=== PATIENT | female | born 1965 | race Caucasian/White ===

== ENCOUNTER 2022-07-12 11:15 | Inpatient (IN) | payer MEDICARE ==
[2022-07-12] MEDS ORDERED: Dextrose 50% Abboject 50 ML SYRINGE SLOW IVP PRN (13:55)
[2022-07-12] MEDS: Gabapentin 300 MG CAP PO SCH ×2 (15:10→20:55)
[2022-07-12] MEDS: HYDROcodone/Acetaminophen 5/325 mg Tablet PO PRN ×2 (16:04→20:54)
[2022-07-12] MEDS: Glimepiride 2 MG TAB PO SCH (17:24)
[2022-07-12] MEDS ORDERED: Insulin Regular 300 UNITS/3 ML VIAL ONE (18:04)
[2022-07-12] MEDS: HumaLOG 300 UNITS/3 ML VIAL SC PRN (18:08)
[2022-07-12] MEDS: Senokot S 8.6-50 MG TAB PO SCH (20:52)
[2022-07-12] MEDS: Metoprolol Tartrate 25 MG TAB PO SCH (20:52)
[2022-07-12] MEDS: Polyethylene Glycol 3350 17 GM Packet PO SCH (20:52)
[2022-07-12] MEDS: QUEtiapine 100 MG TAB PO SCH (20:52)
[2022-07-12] MEDS: Arformoterol 15 MCG/2 ML NEB NEB SCH (20:52)
[2022-07-12] MEDS: traZODone HCl 50 MG TAB PO SCH (20:52)
[2022-07-12] MEDS: Lantus 1000 UNITS/10 ML VIAL SC SCH (21:31)
[2022-07-12] MEDS: Cyclobenzaprine 10 MG TAB PO PRN (22:56)
[2022-07-13] MEDS: HYDROcodone/Acetaminophen 5/325 mg Tablet PO PRN ×4 (04:38→21:02)
[2022-07-13] MEDS: Arformoterol 15 MCG/2 ML NEB NEB SCH ×2 (08:38→21:06)
[2022-07-13] MEDS: Glimepiride 2 MG TAB PO SCH ×2 (08:38→16:51)
[2022-07-13] MEDS: Aspirin Chewable 81 MG TAB PO SCH (08:38)
[2022-07-13] MEDS: Atorvastatin Calcium 40 MG TAB PO SCH (08:38)
[2022-07-13] MEDS: Citalopram 20 MG TAB PO SCH (08:38)
[2022-07-13] MEDS: Lantus 1000 UNITS/10 ML VIAL SC SCH ×2 (08:39→21:15)
[2022-07-13] MEDS: Furosemide 40 MG TAB PO SCH (08:39)
[2022-07-13] MEDS: Gabapentin 300 MG CAP PO SCH ×3 (08:39→21:01)
[2022-07-13] MEDS: Metoprolol Tartrate 25 MG TAB PO SCH ×2 (08:40→21:01)
[2022-07-13] MEDS: Senokot S 8.6-50 MG TAB PO SCH ×2 (08:40→21:01)
[2022-07-13] MEDS ORDERED: Milk Of Magnesia 30 ML UDCUP PO PRN (09:51)
[2022-07-13] MEDS ORDERED: Bisacodyl 10 MG SUPP PR PRN (09:51)
[2022-07-13] MEDS: HumaLOG 300 UNITS/3 ML VIAL SC PRN (16:50)
[2022-07-13] MEDS: traZODone HCl 50 MG TAB PO SCH (21:01)
[2022-07-13] MEDS: QUEtiapine 100 MG TAB PO SCH (21:01)
[2022-07-13] MEDS: Polyethylene Glycol 3350 17 GM Packet PO SCH (21:05)
[2022-07-13] MEDS: Cyclobenzaprine 10 MG TAB PO PRN (22:28)
[2022-07-14 05:31] LABS: Hemoglobin 9.1 g/dL (12.0-16.0); Platelet Count 291 10x3/uL (130-400)
[2022-07-14] MEDS: Lantus 1000 UNITS/10 ML VIAL SC SCH ×2 (08:01→20:53)
[2022-07-14] MEDS: Glimepiride 2 MG TAB PO SCH ×2 (08:03→17:00)
[2022-07-14] MEDS: Atorvastatin Calcium 40 MG TAB PO SCH (08:03)
[2022-07-14] MEDS: Furosemide 40 MG TAB PO SCH (08:03)
[2022-07-14] MEDS: Senokot S 8.6-50 MG TAB PO SCH ×2 (08:03→20:56)
[2022-07-14] MEDS: Gabapentin 300 MG CAP PO SCH ×3 (08:03→20:53)
[2022-07-14] MEDS: Citalopram 20 MG TAB PO SCH (08:03)
[2022-07-14] MEDS: HYDROcodone/Acetaminophen 5/325 mg Tablet PO PRN ×3 (08:04→20:11)
[2022-07-14] MEDS: Arformoterol 15 MCG/2 ML NEB NEB SCH ×2 (08:10→20:50)
[2022-07-14] MEDS: Aspirin Chewable 81 MG TAB PO SCH (08:11)
[2022-07-14] MEDS: Metoprolol Tartrate 25 MG TAB PO SCH ×2 (08:13→20:56)
[2022-07-14] MEDS: HumaLOG 300 UNITS/3 ML VIAL SC PRN (11:53)
[2022-07-14] MEDS: QUEtiapine 100 MG TAB PO SCH (20:56)
[2022-07-14] MEDS: Cyclobenzaprine 10 MG TAB PO PRN (20:56)
[2022-07-14] MEDS: traZODone HCl 50 MG TAB PO SCH (20:56)
[2022-07-14] MEDS: Polyethylene Glycol 3350 17 GM Packet PO SCH (20:56)
[2022-07-15] MEDS: Atorvastatin Calcium 40 MG TAB PO SCH (08:31)
[2022-07-15] MEDS: Gabapentin 300 MG CAP PO SCH ×3 (08:31→21:50)
[2022-07-15] MEDS: Aspirin Chewable 81 MG TAB PO SCH (08:31)
[2022-07-15] MEDS: HYDROcodone/Acetaminophen 5/325 mg Tablet PO PRN ×3 (08:32→21:54)
[2022-07-15] MEDS: Furosemide 40 MG TAB PO SCH (08:32)
[2022-07-15] MEDS: Glimepiride 2 MG TAB PO SCH ×2 (08:32→17:46)
[2022-07-15] MEDS: Senokot S 8.6-50 MG TAB PO SCH ×2 (08:32→21:51)
[2022-07-15] MEDS: Citalopram 20 MG TAB PO SCH (08:33)
[2022-07-15] MEDS: Arformoterol 15 MCG/2 ML NEB NEB SCH ×2 (08:34→21:57)
[2022-07-15] MEDS: Lantus 1000 UNITS/10 ML VIAL SC SCH ×2 (08:35→22:02)
[2022-07-15] MEDS: Metoprolol Tartrate 25 MG TAB PO SCH ×2 (09:00→21:51)
[2022-07-15] MEDS: HumaLOG 300 UNITS/3 ML VIAL SC PRN (12:33)
[2022-07-15] MEDS: traZODone HCl 50 MG TAB PO SCH (21:51)
[2022-07-15] MEDS: Cyclobenzaprine 10 MG TAB PO PRN (21:51)
[2022-07-15] MEDS: QUEtiapine 100 MG TAB PO SCH (21:52)
[2022-07-15] MEDS: Polyethylene Glycol 3350 17 GM Packet PO SCH (21:52)
[2022-07-16] MEDS: Atorvastatin Calcium 40 MG TAB PO SCH (08:08)
[2022-07-16] MEDS: Gabapentin 300 MG CAP PO SCH ×3 (08:08→21:47)
[2022-07-16] MEDS: Aspirin Chewable 81 MG TAB PO SCH (08:08)
[2022-07-16] MEDS: Glimepiride 2 MG TAB PO SCH ×2 (08:08→17:25)
[2022-07-16] MEDS: Arformoterol 15 MCG/2 ML NEB NEB SCH ×2 (08:09→21:47)
[2022-07-16] MEDS: Citalopram 20 MG TAB PO SCH (08:09)
[2022-07-16] MEDS: Lantus 1000 UNITS/10 ML VIAL SC SCH ×2 (08:10→22:01)
[2022-07-16] MEDS: Furosemide 40 MG TAB PO SCH (08:10)
[2022-07-16] MEDS: Senokot S 8.6-50 MG TAB PO SCH ×2 (08:12→21:45)
[2022-07-16] MEDS: Metoprolol Tartrate 25 MG TAB PO SCH ×2 (08:12→21:46)
[2022-07-16] MEDS: HYDROcodone/Acetaminophen 5/325 mg Tablet PO PRN ×4 (08:13→21:46)
[2022-07-16] MEDS: Polyethylene Glycol 3350 17 GM Packet PO SCH (21:44)
[2022-07-16] MEDS: traZODone HCl 50 MG TAB PO SCH (21:45)
[2022-07-16] MEDS: Cyclobenzaprine 10 MG TAB PO PRN (21:45)
[2022-07-16] MEDS: QUEtiapine 100 MG TAB PO SCH (21:46)
[2022-07-17] MEDS: Glimepiride 2 MG TAB PO SCH ×2 (08:00→16:47)
[2022-07-17] MEDS: Gabapentin 300 MG CAP PO SCH ×3 (08:03→21:24)
[2022-07-17] MEDS: Atorvastatin Calcium 40 MG TAB PO SCH (08:03)
[2022-07-17] MEDS: Furosemide 40 MG TAB PO SCH (08:03)
[2022-07-17] MEDS: Citalopram 20 MG TAB PO SCH (08:04)
[2022-07-17] MEDS: HYDROcodone/Acetaminophen 5/325 mg Tablet PO PRN ×3 (08:04→21:26)
[2022-07-17] MEDS: Aspirin Chewable 81 MG TAB PO SCH (08:05)
[2022-07-17] MEDS: Arformoterol 15 MCG/2 ML NEB NEB SCH ×2 (08:15→21:27)
[2022-07-17] MEDS: Lantus 1000 UNITS/10 ML VIAL SC SCH ×2 (09:52→21:30)
[2022-07-17] MEDS: Metoprolol Tartrate 25 MG TAB PO SCH ×2 (09:57→21:23)
[2022-07-17] MEDS: Senokot S 8.6-50 MG TAB PO SCH ×2 (09:58→21:23)
[2022-07-17] MEDS: HumaLOG 300 UNITS/3 ML VIAL SC PRN (11:56)
[2022-07-17] MEDS: QUEtiapine 100 MG TAB PO SCH (21:22)
[2022-07-17] MEDS: Polyethylene Glycol 3350 17 GM Packet PO SCH (21:22)
[2022-07-17] MEDS: traZODone HCl 50 MG TAB PO SCH (21:23)
[2022-07-17] MEDS: Cyclobenzaprine 10 MG TAB PO PRN (21:24)
[2022-07-18] MEDS: HYDROcodone/Acetaminophen 5/325 mg Tablet PO PRN ×4 (02:06→19:39)
[2022-07-18] MEDS: Senokot S 8.6-50 MG TAB PO SCH ×2 (08:23→20:25)
[2022-07-18] MEDS: Glimepiride 2 MG TAB PO SCH ×2 (08:23→17:16)
[2022-07-18] MEDS: Citalopram 20 MG TAB PO SCH (08:24)
[2022-07-18] MEDS: Arformoterol 15 MCG/2 ML NEB NEB SCH ×2 (08:24→20:24)
[2022-07-18] MEDS: Aspirin Chewable 81 MG TAB PO SCH (08:24)
[2022-07-18] MEDS: Atorvastatin Calcium 40 MG TAB PO SCH (08:24)
[2022-07-18] MEDS: Furosemide 40 MG TAB PO SCH (08:26)
[2022-07-18] MEDS: Gabapentin 300 MG CAP PO SCH ×3 (08:26→20:25)
[2022-07-18] MEDS: Metoprolol Tartrate 25 MG TAB PO SCH ×2 (08:30→20:26)
[2022-07-18] MEDS: Lantus 1000 UNITS/10 ML VIAL SC SCH (20:24)
[2022-07-18] MEDS: traZODone HCl 50 MG TAB PO SCH (20:26)
[2022-07-18] MEDS: QUEtiapine 100 MG TAB PO SCH (20:26)
[2022-07-18] MEDS: Polyethylene Glycol 3350 17 GM Packet PO SCH (20:27)
[2022-07-19 05:36] LABS: Anion Gap 14 mmol/L (10-20); BUN (Urea Nitrogen) 16 mg/dL (9.8-20.1); Calc. Creatinine Clearance 113 mL/min (70-130); Calcium 9.1 mg/dL (7.8-10.44); Carbon Dioxide 28 mmol/L (22-29); Chloride 101 mmol/L (98-107); Estimated GFR 82; Glucose 142 mg/dL (70-105); Sodium 139 mmol/L (136-145)
[2022-07-19] MEDS: HYDROcodone/Acetaminophen 5/325 mg Tablet PO PRN ×4 (08:06→22:00)
[2022-07-19] MEDS: Gabapentin 300 MG CAP PO SCH ×3 (08:07→21:09)
[2022-07-19] MEDS: Metoprolol Tartrate 25 MG TAB PO SCH ×2 (08:08→21:10)
[2022-07-19] MEDS: Aspirin Chewable 81 MG TAB PO SCH (08:08)
[2022-07-19] MEDS: Atorvastatin Calcium 40 MG TAB PO SCH (08:08)
[2022-07-19] MEDS: Glimepiride 2 MG TAB PO SCH ×2 (08:08→17:33)
[2022-07-19] MEDS: Senokot S 8.6-50 MG TAB PO SCH ×2 (08:08→21:10)
[2022-07-19] MEDS: Citalopram 20 MG TAB PO SCH (08:09)
[2022-07-19] MEDS: Furosemide 40 MG TAB PO SCH (08:09)
[2022-07-19] MEDS: Arformoterol 15 MCG/2 ML NEB NEB SCH ×2 (08:10→21:10)
[2022-07-19] MEDS: Cyclobenzaprine 10 MG TAB PO PRN ×2 (10:36→21:11)
[2022-07-19] MEDS: HumaLOG 300 UNITS/3 ML VIAL SC PRN (12:15)
[2022-07-19] MEDS: QUEtiapine 100 MG TAB PO SCH (21:09)
[2022-07-19] MEDS: Lantus 1000 UNITS/10 ML VIAL SC SCH (21:09)
[2022-07-19] MEDS: traZODone HCl 50 MG TAB PO SCH (21:09)
[2022-07-19] MEDS: Polyethylene Glycol 3350 17 GM Packet PO SCH (21:11)
[2022-07-20] MEDS: HYDROcodone/Acetaminophen 5/325 mg Tablet PO PRN ×4 (07:36→20:21)
[2022-07-20] MEDS: Cyclobenzaprine 10 MG TAB PO PRN ×2 (07:37→15:45)
[2022-07-20] MEDS: Aspirin Chewable 81 MG TAB PO SCH (09:16)
[2022-07-20] MEDS: Glimepiride 2 MG TAB PO SCH ×2 (09:16→16:45)
[2022-07-20] MEDS: Gabapentin 300 MG CAP PO SCH ×3 (09:16→20:22)
[2022-07-20] MEDS: Furosemide 40 MG TAB PO SCH (09:17)
[2022-07-20] MEDS: Ferrous Gluconate 324 MG TAB PO SCH (09:17)
[2022-07-20] MEDS: Atorvastatin Calcium 40 MG TAB PO SCH (09:17)
[2022-07-20] MEDS: Metoprolol Tartrate 25 MG TAB PO SCH ×2 (09:17→20:22)
[2022-07-20] MEDS: Senokot S 8.6-50 MG TAB PO SCH ×2 (09:17→20:21)
[2022-07-20] MEDS: Citalopram 20 MG TAB PO SCH (09:17)
[2022-07-20] MEDS: Arformoterol 15 MCG/2 ML NEB NEB SCH ×2 (09:18→20:24)
[2022-07-20] MEDS: HumaLOG 300 UNITS/3 ML VIAL SC PRN (16:46)
[2022-07-20] MEDS: QUEtiapine 100 MG TAB PO SCH (20:22)
[2022-07-20] MEDS: traZODone HCl 50 MG TAB PO SCH (20:22)
[2022-07-20] MEDS: Lantus 1000 UNITS/10 ML VIAL SC SCH (20:23)
[2022-07-20] MEDS: Polyethylene Glycol 3350 17 GM Packet PO SCH (20:25)
[2022-07-21] MEDS: HYDROcodone/Acetaminophen 5/325 mg Tablet PO PRN ×4 (00:16→20:35)
[2022-07-21] MEDS: Cyclobenzaprine 10 MG TAB PO PRN ×3 (00:16→20:35)
[2022-07-21] MEDS: Ferrous Gluconate 324 MG TAB PO SCH (09:08)
[2022-07-21] MEDS: Furosemide 40 MG TAB PO SCH (09:08)
[2022-07-21] MEDS: Glimepiride 2 MG TAB PO SCH ×2 (09:08→17:16)
[2022-07-21] MEDS: Gabapentin 300 MG CAP PO SCH ×3 (09:09→20:34)
[2022-07-21] MEDS: Citalopram 20 MG TAB PO SCH (09:10)
[2022-07-21] MEDS: Atorvastatin Calcium 40 MG TAB PO SCH (09:10)
[2022-07-21] MEDS: Arformoterol 15 MCG/2 ML NEB NEB SCH ×2 (09:10→20:37)
[2022-07-21] MEDS: Senokot S 8.6-50 MG TAB PO SCH ×2 (09:10→20:34)
[2022-07-21] MEDS: Metoprolol Tartrate 25 MG TAB PO SCH ×2 (09:11→20:35)
[2022-07-21] MEDS: Aspirin Chewable 81 MG TAB PO SCH (09:11)
[2022-07-21] MEDS: HumaLOG 300 UNITS/3 ML VIAL SC PRN ×2 (12:16→17:16)
[2022-07-21] MEDS: traZODone HCl 50 MG TAB PO SCH (20:35)
[2022-07-21] MEDS: QUEtiapine 100 MG TAB PO SCH (20:35)
[2022-07-21] MEDS: Lantus 1000 UNITS/10 ML VIAL SC SCH (20:39)
[2022-07-21] MEDS: Polyethylene Glycol 3350 17 GM Packet PO SCH (20:40)
[2022-07-22] MEDS: HYDROcodone/Acetaminophen 5/325 mg Tablet PO PRN ×4 (07:25→22:14)
[2022-07-22] MEDS: Glimepiride 2 MG TAB PO SCH ×2 (09:01→17:44)
[2022-07-22] MEDS: Senokot S 8.6-50 MG TAB PO SCH ×2 (09:02→22:10)
[2022-07-22] MEDS: Gabapentin 300 MG CAP PO SCH ×3 (09:02→22:09)
[2022-07-22] MEDS: Ferrous Gluconate 324 MG TAB PO SCH (09:02)
[2022-07-22] MEDS: Furosemide 40 MG TAB PO SCH (09:02)
[2022-07-22] MEDS: Aspirin Chewable 81 MG TAB PO SCH (09:02)
[2022-07-22] MEDS: Citalopram 20 MG TAB PO SCH (09:02)
[2022-07-22] MEDS: Metoprolol Tartrate 25 MG TAB PO SCH ×2 (09:03→22:10)
[2022-07-22] MEDS: Cyclobenzaprine 10 MG TAB PO PRN ×2 (09:03→22:13)
[2022-07-22] MEDS: Atorvastatin Calcium 40 MG TAB PO SCH (09:03)
[2022-07-22] MEDS: Arformoterol 15 MCG/2 ML NEB NEB SCH ×2 (09:03→22:11)
[2022-07-22] MEDS: HumaLOG 300 UNITS/3 ML VIAL SC PRN ×2 (12:31→17:43)
[2022-07-22] MEDS: QUEtiapine 100 MG TAB PO SCH (22:10)
[2022-07-22] MEDS: Lantus 1000 UNITS/10 ML VIAL SC SCH (22:10)
[2022-07-22] MEDS: traZODone HCl 50 MG TAB PO SCH (22:10)
[2022-07-22] MEDS: Polyethylene Glycol 3350 17 GM Packet PO SCH (22:11)
[2022-07-23] MEDS: Citalopram 20 MG TAB PO SCH (09:30)
[2022-07-23] MEDS: Arformoterol 15 MCG/2 ML NEB NEB SCH ×2 (09:30→20:39)
[2022-07-23] MEDS: Metoprolol Tartrate 25 MG TAB PO SCH ×2 (09:30→20:41)
[2022-07-23] MEDS: Atorvastatin Calcium 40 MG TAB PO SCH (09:30)
[2022-07-23] MEDS: Aspirin Chewable 81 MG TAB PO SCH (09:30)
[2022-07-23] MEDS: Ferrous Gluconate 324 MG TAB PO SCH (09:31)
[2022-07-23] MEDS: Glimepiride 2 MG TAB PO SCH ×2 (09:31→17:17)
[2022-07-23] MEDS: HYDROcodone/Acetaminophen 5/325 mg Tablet PO PRN ×3 (09:32→20:40)
[2022-07-23] MEDS: Furosemide 40 MG TAB PO SCH (09:32)
[2022-07-23] MEDS: Senokot S 8.6-50 MG TAB PO SCH ×2 (09:32→20:41)
[2022-07-23] MEDS: Gabapentin 300 MG CAP PO SCH ×3 (09:32→20:41)
[2022-07-23] MEDS: HumaLOG 300 UNITS/3 ML VIAL SC PRN (12:22)
[2022-07-23] MEDS: Cyclobenzaprine 10 MG TAB PO PRN ×2 (12:25→20:40)
[2022-07-23] MEDS: traZODone HCl 50 MG TAB PO SCH (20:41)
[2022-07-23] MEDS: QUEtiapine 100 MG TAB PO SCH (20:41)
[2022-07-23] MEDS: Lantus 1000 UNITS/10 ML VIAL SC SCH (20:42)
[2022-07-23] MEDS: Polyethylene Glycol 3350 17 GM Packet PO SCH (20:54)
[2022-07-24] MEDS: HYDROcodone/Acetaminophen 5/325 mg Tablet PO PRN ×4 (03:56→22:07)
[2022-07-24] MEDS: Atorvastatin Calcium 40 MG TAB PO SCH (08:50)
[2022-07-24] MEDS: Ferrous Gluconate 324 MG TAB PO SCH (08:50)
[2022-07-24] MEDS: Gabapentin 300 MG CAP PO SCH ×3 (08:51→20:52)
[2022-07-24] MEDS: Metoprolol Tartrate 25 MG TAB PO SCH ×2 (08:51→20:53)
[2022-07-24] MEDS: Citalopram 20 MG TAB PO SCH (08:51)
[2022-07-24] MEDS: Aspirin Chewable 81 MG TAB PO SCH (08:51)
[2022-07-24] MEDS: Glimepiride 2 MG TAB PO SCH ×2 (08:51→17:38)
[2022-07-24] MEDS: Furosemide 40 MG TAB PO SCH (08:51)
[2022-07-24] MEDS: Arformoterol 15 MCG/2 ML NEB NEB SCH ×2 (08:52→20:51)
[2022-07-24] MEDS: Senokot S 8.6-50 MG TAB PO SCH ×2 (08:52→20:53)
[2022-07-24] MEDS ORDERED: Ipratropium/Albuterol 3 ML NEB NEB PRN (14:22)
[2022-07-24] MEDS: Cyclobenzaprine 10 MG TAB PO PRN ×2 (14:40→22:08)
[2022-07-24] MEDS: HumaLOG 300 UNITS/3 ML VIAL SC PRN (17:38)
[2022-07-24] MEDS: Polyethylene Glycol 3350 17 GM Packet PO SCH (20:53)
[2022-07-24] MEDS: traZODone HCl 50 MG TAB PO SCH (20:53)
[2022-07-24] MEDS: QUEtiapine 100 MG TAB PO SCH (20:53)
[2022-07-24] MEDS: Lantus 1000 UNITS/10 ML VIAL SC SCH (20:53)
[2022-07-25] MEDS: Atorvastatin Calcium 40 MG TAB PO SCH (08:53)
[2022-07-25] MEDS: Gabapentin 300 MG CAP PO SCH ×3 (08:53→21:20)
[2022-07-25] MEDS: Ferrous Gluconate 324 MG TAB PO SCH (08:53)
[2022-07-25] MEDS: Senokot S 8.6-50 MG TAB PO SCH ×2 (08:54→21:18)
[2022-07-25] MEDS: Furosemide 40 MG TAB PO SCH (08:54)
[2022-07-25] MEDS: Metoprolol Tartrate 25 MG TAB PO SCH ×2 (08:54→21:18)
[2022-07-25] MEDS: Glimepiride 2 MG TAB PO SCH ×2 (08:54→17:12)
[2022-07-25] MEDS: Citalopram 20 MG TAB PO SCH (08:55)
[2022-07-25] MEDS: HYDROcodone/Acetaminophen 5/325 mg Tablet PO PRN ×3 (08:55→21:18)
[2022-07-25] MEDS: Arformoterol 15 MCG/2 ML NEB NEB SCH ×2 (08:55→21:20)
[2022-07-25] MEDS: Aspirin Chewable 81 MG TAB PO SCH (08:55)
[2022-07-25 09:50] VITALS: BMI 37.6
[2022-07-25] MEDS: Cyclobenzaprine 10 MG TAB PO PRN ×2 (13:51→21:19)
[2022-07-25] MEDS: traZODone HCl 50 MG TAB PO SCH (21:18)
[2022-07-25] MEDS: QUEtiapine 100 MG TAB PO SCH (21:18)
[2022-07-25] MEDS: Lantus 1000 UNITS/10 ML VIAL SC SCH (21:20)
[2022-07-25] MEDS: Polyethylene Glycol 3350 17 GM Packet PO SCH (21:25)
[2022-07-26] MEDS: Furosemide 40 MG TAB PO SCH (08:30)
[2022-07-26] MEDS: Glimepiride 2 MG TAB PO SCH (08:30)
[2022-07-26] MEDS: Senokot S 8.6-50 MG TAB PO SCH (08:30)
[2022-07-26] MEDS: Citalopram 20 MG TAB PO SCH (08:30)
[2022-07-26] MEDS: Aspirin Chewable 81 MG TAB PO SCH (08:30)
[2022-07-26] MEDS: Atorvastatin Calcium 40 MG TAB PO SCH (08:31)
[2022-07-26] MEDS: Ferrous Gluconate 324 MG TAB PO SCH (08:31)
[2022-07-26] MEDS: Arformoterol 15 MCG/2 ML NEB NEB SCH (08:31)
[2022-07-26] MEDS: Metoprolol Tartrate 25 MG TAB PO SCH (08:31)
[2022-07-26] MEDS: Gabapentin 300 MG CAP PO SCH (08:31)
[2022-07-26] MEDS: HYDROcodone/Acetaminophen 5/325 mg Tablet PO PRN (08:35)
[2022-07-26 09:15] VITALS: BP 140/82; TEMP 98.1
== END 2022-07-26 11:50 | disposition home health service (06) | DRG 948 ==
LOC: MADMS 12:17
PROVIDERS: ADMIT Family Medicine; ATTEND Family Medicine
DX: R53.81 Other malaise (principal); J44.1 Chronic obstructive pulmonary disease with (acute) exacerbation; D62 Acute posthemorrhagic anemia; Z95.1 Presence of aortocoronary bypass graft; K59.00 Constipation, unspecified; E11.649 Type 2 diabetes mellitus with hypoglycemia without coma; I11.9 Hypertensive heart disease without heart failure; I25.10 Atherosclerotic heart disease of native coronary artery without angina pectoris; E78.5 Hyperlipidemia, unspecified; E66.9 Obesity, unspecified; F17.210 Nicotine dependence, cigarettes, uncomplicated; Z95.5 Presence of coronary angioplasty implant and graft; Z90.49 Acquired absence of other specified parts of digestive tract; Z79.899 Other long term (current) drug therapy; Z79.4 Long term (current) use of insulin; Z79.82 Long term (current) use of aspirin; Z68.37 Body mass index [BMI] 37.0-37.9, adult
CPT/HCPCS: 36415; 36416; 80048; 82565; 85014; 85018; 85049; J1650; J1815; J7620

== ENCOUNTER 2024-02-12 20:50 | Emergency (ER) | payer MEDICARE ==
[~2024-02-12 20:50] MED LIST: Iopamidol 370 76% 100 ML VIAL ONE
[2024-02-12 21:24] LABS: #Basophils 0.1 thou/uL (0.0-0.2); #Eosinophils 0.1 thou/uL (0.0-0.7); #Lymphocytes 2.6 thou/uL (1.20-3.40); #Monocytes 0.3 thou/uL (0.11-0.59); #Neutrophils 6.8 thou/uL (1.40-6.50); %Basophils 1.2 % (0.0-1.0); %Eosinophils 0.9 % (0.0-10.0); %Lymphocytes 26.3 % (21.0-51.0); %Monocytes 3.1 % (0.0-10.0); %Neutrophils 68.6 % (42.0-75.0); Hematocrit 41.5 % (36.0-47.0); Hemoglobin 13.7 g/dL (12.0-16.0); Mean Corpuscular HGB CONC 32.9 g/dL (32.0-36.0); Mean Corpuscular Hemoglobin 28.3 pg (27.0-31.0); Mean Platelet Volume 9.4 fL (7.4-10.4); Platelet Count 240 10x3/uL (130-400); RBC Distribution Width 12.7 % (11.5-14.5); Red Blood Cell (RBC) Count 4.83 mill/uL (4.20-5.40)
[2024-02-12] MEDS ORDERED: Ondansetron PF 4 MG/2 ML Vial ONE (21:33)
[2024-02-12] MEDS ORDERED: Morphine 4 MG/ML VIAL ONE ×2 (21:33→22:43)
[2024-02-12] MEDS ORDERED: Aspirin Chewable 81 MG TAB ONE (21:34)
[2024-02-12 21:45] LABS: ALT (SGPT) 16 U/L (8-55); AST (SGOT) 12 U/L (5-34); Albumin 3.7 g/dL (3.5-5.0); Alkaline Phosphatase 130 U/L (40-110); Anion Gap 22 mmol/L (10-20); BUN (Urea Nitrogen) 14 mg/dL (9.8-20.1); Bilirubin, Total 0.4 mg/dL (0.2-1.2); Calc. Creatinine Clearance 0 mL/min (70-130); Calcium 10.4 mg/dL (7.8-10.44); Carbon Dioxide 21 mmol/L (22-29); Chloride 97 mmol/L (98-107); Estimated GFR 48; Globulin 3.4 g/dL (2.4-3.5); Potassium 4.7 mmol/L (3.5-5.1); Protein, Total 7.1 g/dL (6.0-8.3); Sodium 135 mmol/L (136-145)
[2024-02-12 21:46] LABS: Troponin I Less than 0.010 ng/mL (< 0.028)
[2024-02-12 21:48] LABS: Critical Call Chemistry EMS.CLJ@2147; Glucose 542 mg/dL (70-105)
[2024-02-12] MEDS ORDERED: Insulin Regular, Human 100 UNIT/ML 10 ML VIAL ONE (22:02)
[2024-02-12 22:10] LABS: Lipase 246 U/L (8-78); Magnesium 1.7 mg/dL (1.6-2.6)
[2024-02-12 22:22] LABS: Base Excess-Venous 0.9 mmol/L (-2.0 to 3.0); Bicarbonate (HCO3v) 25.1 mmol/L (22.0-28.0); CO2 Tension (PvCO2) 37.8 mmHg (42.0-51.0); Calcium, Ionized 1.13 mmol/L (1.15-1.33); Chloride 102 mmol/L (98-107); Hemoglobin - Calc 14.4 g/dL (12.0-16.0); Potassium 4.1 mmol/L (3.5-5.1); Sodium 134 mmol/L (138-145); T. Carbon Dioxide 26.2 mmol/L (22.0-28.0); vO2 Saturation-calc 96.5 % (60.0-85.0)
[2024-02-13] MEDS ORDERED: fentaNYL 50 mcg/mL 1 mL Vial ONE ×2 (00:21→02:10)
[2024-02-13] MEDS ORDERED: Sodium Chloride 0.9% 1,000 ML ONE (00:46)
[2024-02-13 01:00] LABS: Troponin I Less than 0.010 ng/mL (< 0.028)
[2024-02-13 01:54] LABS: Bilirubin Negative (Negative); Blood, Urine Trace (Negative); Clarity Clear (Clear); Glucose, Urine (Dipstick) 500 mg/dL (Negative); Ketone, Urine Negative (Negative); Leukocyte Negative (Negative); Nitrite Negative (Negative); Protein, Urine (Dipstick) Negative (Neg-Trace); Urobilinogen 0.2 mg/dL (Less than 2)
[2024-02-13 01:57] LABS: Bacteria/HPF Rare-Few HPF (None Seen); CAUTI Indications for Culture Pelvic or flank pain; RBC/HPF 0-3 HPF (0-3); WBC/HPF 0-3 HPF (0-3)
[2024-02-13 01:58] LABS: Urine Culture Reflex No No; Yeast-Budding Rare HPF (None Seen)
== END 2024-02-13 03:12 | disposition short-term general hospital (02) ==
LOC: MADERS 20:50
DX: K85.90 Acute pancreatitis without necrosis or infection, unspecified (principal); R07.9 Chest pain, unspecified; F17.210 Nicotine dependence, cigarettes, uncomplicated; E11.9 Type 2 diabetes mellitus without complications; I10 Essential (primary) hypertension; I25.2 Old myocardial infarction; J44.9 Chronic obstructive pulmonary disease, unspecified; E11.40 Type 2 diabetes mellitus with diabetic neuropathy, unspecified; Z79.899 Other long term (current) drug therapy
CPT/HCPCS: 71045; 71275; 74177; 80053; 81001; 82010; 82330; 82435; 82803; 82962; 83690; 83735; 83880; 84100; 84132; 84295; 84484; 85014; 85025; 85379; 93005; 94760; J1815; J2272; J2405; J3010; J7030; Q9967; 36415; 36416; 96374; 96375; 96376

== ENCOUNTER 2024-02-21 23:42 | Emergency (ER) | payer MEDICARE ==
[2024-02-22] MEDS ORDERED: Sodium Chloride 0.9% 1,000 ML ONE (00:48)
[2024-02-22] MEDS ORDERED: Morphine 4 MG/ML VIAL ONE (00:48)
[2024-02-22] MEDS ORDERED: Ondansetron PF 4 MG/2 ML Vial ONE (00:48)
[2024-02-22 01:08] LABS: #Basophils 0.1 thou/uL (0.0-0.2); #Eosinophils 0.1 thou/uL (0.0-0.7); #Lymphocytes 2.7 thou/uL (1.20-3.40); #Monocytes 0.4 thou/uL (0.11-0.59); #Neutrophils 4.7 thou/uL (1.40-6.50); %Basophils 1.5 % (0.0-1.0); %Eosinophils 1.4 % (0.0-10.0); %Lymphocytes 33.5 % (21.0-51.0); %Monocytes 4.4 % (0.0-10.0); %Neutrophils 59.3 % (42.0-75.0); Hematocrit 39.1 % (36.0-47.0); Hemoglobin 12.5 g/dL (12.0-16.0); Mean Corpuscular HGB CONC 31.9 g/dL (32.0-36.0); Mean Corpuscular Volume 87.6 fl (78.0-98.0); Mean Platelet Volume 9.6 fL (7.4-10.4); Platelet Count 260 10x3/uL (130-400); RBC Distribution Width 13.4 % (11.5-14.5); Red Blood Cell (RBC) Count 4.46 mill/uL (4.20-5.40)
[2024-02-22 01:26] LABS: Base Excess-Venous 4.1 mmol/L (-2.0 to 3.0); Bicarbonate (HCO3v) 32.2 mmol/L (22.0-28.0); CO2 Tension (PvCO2) 63.2 mmHg (42.0-51.0); Calcium, Ionized 1.15 mmol/L (1.15-1.33); Chloride 103 mmol/L (98-107); Hemoglobin - Calc 13.6 g/dL (12.0-16.0); Potassium 4.6 mmol/L (3.5-5.1); Sodium 139 mmol/L (138-145); T. Carbon Dioxide 34.1 mmol/L (22.0-28.0)
[2024-02-22 02:02] LABS: ALT (SGPT) 14 U/L (8-55); AST (SGOT) 22 U/L (5-34); Albumin 3.3 g/dL (3.5-5.0); Alkaline Phosphatase 105 U/L (40-110); Anion Gap 16 mmol/L (10-20); BUN (Urea Nitrogen) 18 mg/dL (9.8-20.1); Bilirubin, Total 0.2 mg/dL (0.2-1.2); Calc. Creatinine Clearance 0 mL/min (70-130); Calcium 8.6 mg/dL (7.8-10.44); Carbon Dioxide 25 mmol/L (22-29); Chloride 103 mmol/L (98-107); Estimated GFR 59; Globulin 3.2 g/dL (2.4-3.5); Glucose 291 mg/dL (70-105); Lipase 124 U/L (8-78); Magnesium 1.7 mg/dL (1.6-2.6); Potassium 4.6 mmol/L (3.5-5.1); Protein, Total 6.5 g/dL (6.0-8.3); Sodium 139 mmol/L (136-145)
[2024-02-22 03:36] LABS: Bilirubin Negative (Negative); Blood, Urine Negative (Negative); Clarity Clear (Clear); Glucose, Urine (Dipstick) >=1000 mg/dL (Negative); Ketone, Urine Negative (Negative); Leukocyte Negative (Negative); Nitrite Negative (Negative); Protein, Urine (Dipstick) Negative (Neg-Trace); Urobilinogen 0.2 mg/dL (Less than 2)
[2024-02-22 03:43] LABS: Bacteria/HPF None Seen HPF (None Seen); CAUTI Indications for Culture Pelvic or flank pain; RBC/HPF None Seen HPF (0-3); WBC/HPF 0-3 HPF (0-3); Yeast-Budding Rare HPF (None Seen)
[2024-02-22 03:44] LABS: Urine Culture Reflex No No
[2024-02-22] MEDS ORDERED: Acetaminophen 325 MG TAB ONE (04:04)
[2024-02-22] MEDS ORDERED: HYDROcodone/Acetaminophen 10/325 mg Tablet ONE (04:04)
[2024-02-22] MEDS ORDERED: Ketorolac Tromethamine 30 MG (1 mL) VIAL ONE (04:04)
== END 2024-02-22 05:00 | disposition home or self-care (01) ==
LOC: MADERS 23:42
DX: K85.90 Acute pancreatitis without necrosis or infection, unspecified (principal); E11.9 Type 2 diabetes mellitus without complications; I10 Essential (primary) hypertension; I25.10 Atherosclerotic heart disease of native coronary artery without angina pectoris; F17.210 Nicotine dependence, cigarettes, uncomplicated; Z79.899 Other long term (current) drug therapy
CPT/HCPCS: 74177; 80053; 81001; 82010; 82330; 82803; 83605; 83690; 83735; 85025; 94760; 96361; 96374; 96375; J1885; J2272; J2405; J7030; Q9967

== ENCOUNTER 2024-03-18 22:26 | Emergency (ER) | payer MEDICARE ==
[2024-03-18 22:59] LABS: #Basophils 0.1 thou/uL (0.0-0.2); #Eosinophils 0.1 thou/uL (0.0-0.7); #Lymphocytes 2.4 thou/uL (1.20-3.40); #Monocytes 0.3 thou/uL (0.11-0.59); %Basophils 1.1 % (0.0-1.0); %Eosinophils 1.5 % (0.0-10.0); %Lymphocytes 29.9 % (21.0-51.0); %Monocytes 3.7 % (0.0-10.0); %Neutrophils 63.8 % (42.0-75.0); Hematocrit 41.6 % (36.0-47.0); Hemoglobin 13.8 g/dL (12.0-16.0); Mean Corpuscular HGB CONC 33.3 g/dL (32.0-36.0); Mean Corpuscular Hemoglobin 29.3 pg (27.0-31.0); Mean Platelet Volume 9.3 fL (7.4-10.4); Platelet Count 220 10x3/uL (130-400); RBC Distribution Width 13.2 % (11.5-14.5); Red Blood Cell (RBC) Count 4.72 mill/uL (4.20-5.40); White Blood Cell (WBC) Count 7.9 10x3/uL (4.8-10.8)
[2024-03-18 23:20] LABS: Troponin I Less than 0.010 ng/mL (< 0.028)
[2024-03-18 23:21] LABS: ALT (SGPT) 18 U/L (8-55); AST (SGOT) 15 U/L (5-34); Albumin 3.7 g/dL (3.5-5.0); Alkaline Phosphatase 110 U/L (40-110); Anion Gap 17 mmol/L (10-20); BUN (Urea Nitrogen) 19 mg/dL (9.8-20.1); Bilirubin, Total 0.5 mg/dL (0.2-1.2); Calc. Creatinine Clearance 0 mL/min (70-130); Calcium 9.3 mg/dL (7.8-10.44); Carbon Dioxide 19 mmol/L (22-29); Chloride 102 mmol/L (98-107); Estimated GFR 57; Glucose 323 mg/dL (70-105); Lipase 72 U/L (8-78); Potassium 4.1 mmol/L (3.5-5.1); Protein, Total 6.7 g/dL (6.0-8.3); Sodium 134 mmol/L (136-145)
[2024-03-18] MEDS ORDERED: Lactated Ringer's 1,000 ML ONE (23:29)
[2024-03-18] MEDS ORDERED: Morphine 2 MG/ML VIAL ONE (23:29)
[2024-03-18] MEDS ORDERED: Gabapentin 100 MG CAP ONE (23:29)
[2024-03-19] MEDS ORDERED: Mag-Al 1200 mg/1200 mg/30 ML UDCUP ONE (01:12)
[2024-03-19] MEDS ORDERED: Lidocaine Viscous Sol 2% 15 ml UD Cup ONE (01:12)
[2024-03-19] MEDS ORDERED: Metoclopramide HCl 10 MG (2 mL) VIAL ONE (01:12)
[2024-03-19] MEDS ORDERED: Famotidine/PF 20 mg/2ml Vial ONE (01:13)
[2024-03-19 02:13] LABS: Troponin I 0.012 ng/mL (< 0.028)
[2024-03-19 02:42] LABS: Bilirubin Negative (Negative); Blood, Urine Negative (Negative); Clarity Clear (Clear); Glucose, Urine (Dipstick) >=1000 mg/dL (Negative); Ketone, Urine Negative (Negative); Leukocyte Negative (Negative); Nitrite Negative (Negative); Protein, Urine (Dipstick) Negative (Neg-Trace); Urobilinogen 0.2 mg/dL (Less than 2); pH, Urine 5.5 (5.0-9.0)
[2024-03-19 02:43] LABS: CAUTI Indications for Culture Pelvic or flank pain; RBC/HPF None Seen HPF (0-3); Yeast-Budding 1+ HPF (None Seen)
[2024-03-19 02:44] LABS: Urine Culture Reflex No No
== END 2024-03-19 04:50 | disposition home or self-care (01) ==
LOC: MADERS 22:26
DX: K21.00 Gastro-esophageal reflux disease with esophagitis, without bleeding (principal); E11.65 Type 2 diabetes mellitus with hyperglycemia; R33.9 Retention of urine, unspecified; I10 Essential (primary) hypertension; I25.2 Old myocardial infarction; E11.40 Type 2 diabetes mellitus with diabetic neuropathy, unspecified; J44.9 Chronic obstructive pulmonary disease, unspecified; Z95.1 Presence of aortocoronary bypass graft; F17.210 Nicotine dependence, cigarettes, uncomplicated
CPT/HCPCS: 71045; 71275; 74174; 80053; 81001; 83690; 84484; 85025; 93005; 94760; 96361; 96374; 96375; J2272; J2765; J3490; J7120; Q9967

== ENCOUNTER 2024-04-04 23:04 | Emergency (ER) | payer MEDICARE ==
[2024-04-05] MEDS ORDERED: Ketorolac Tromethamine 30 MG (1 mL) VIAL ONE (00:05)
[2024-04-05 00:15] LABS: #Basophils 0.1 thou/uL (0.0-0.2); #Eosinophils 0.2 thou/uL (0.0-0.7); #Lymphocytes 2.7 thou/uL (1.20-3.40); #Monocytes 0.4 thou/uL (0.11-0.59); #Neutrophils 4.6 thou/uL (1.40-6.50); %Basophils 1.1 % (0.0-1.0); %Eosinophils 1.9 % (0.0-10.0); %Lymphocytes 34.2 % (21.0-51.0); %Monocytes 5.1 % (0.0-10.0); %Neutrophils 57.7 % (42.0-75.0); Hematocrit 38.6 % (36.0-47.0); Hemoglobin 12.9 g/dL (12.0-16.0); Mean Corpuscular HGB CONC 33.5 g/dL (32.0-36.0); Mean Corpuscular Hemoglobin 29.5 pg (27.0-31.0); Mean Corpuscular Volume 88.2 fl (78.0-98.0); Mean Platelet Volume 8.6 fL (7.4-10.4); Platelet Count 237 10x3/uL (130-400); RBC Distribution Width 12.4 % (11.5-14.5); Red Blood Cell (RBC) Count 4.38 mill/uL (4.20-5.40)
[2024-04-05 00:36] LABS: Troponin I Less than 0.010 ng/mL (< 0.028)
[2024-04-05 00:37] LABS: ALT (SGPT) 14 U/L (8-55); AST (SGOT) 15 U/L (5-34); Albumin 3.4 g/dL (3.5-5.0); Alkaline Phosphatase 128 U/L (40-110); Anion Gap 11 mmol/L (10-20); BUN (Urea Nitrogen) 17 mg/dL (9.8-20.1); Bilirubin, Total 0.4 mg/dL (0.2-1.2); Calc. Creatinine Clearance 0 mL/min (70-130); Calcium 8.7 mg/dL (7.8-10.44); Carbon Dioxide 22 mmol/L (22-29); Chloride 106 mmol/L (98-107); Estimated GFR 56; Globulin 3.1 g/dL (2.4-3.5); Glucose 200 mg/dL (70-105); Potassium 4.4 mmol/L (3.5-5.1); Protein, Total 6.5 g/dL (6.0-8.3); Sodium 135 mmol/L (136-145)
[2024-04-05] MEDS ORDERED: Famotidine 20 MG TAB ONE (01:01)
== END 2024-04-05 01:18 | disposition home or self-care (01) ==
LOC: MADERS 23:04
DX: R07.89 Other chest pain (principal); I10 Essential (primary) hypertension; J44.9 Chronic obstructive pulmonary disease, unspecified; I25.2 Old myocardial infarction; E11.40 Type 2 diabetes mellitus with diabetic neuropathy, unspecified; E78.5 Hyperlipidemia, unspecified; F17.210 Nicotine dependence, cigarettes, uncomplicated; Z79.82 Long term (current) use of aspirin; Z79.899 Other long term (current) drug therapy; Z79.4 Long term (current) use of insulin
CPT/HCPCS: 80053; 84484; 85025; 93005; J1885; 36415; 96372; 99285